=== PATIENT | female | born 1995 | race African-American/Black ===

== ENCOUNTER 2016-08-18 16:46 | Emergency (ER) ==
[2016-08-18] MEDS ORDERED: NUBAIN IM ONE (17:58)
[2016-08-18] MEDS ORDERED: PHENERGAN IM ONE (17:58)
--- NOTE | 2016-08-18 18:00 | PROVIDER DOCUMENTATION ---
HPI-Headache - General Source: patient - History of Present Illness-Headache Headache Location: reports: frontal Quality of Pain: reports: aching Severity: reports: moderate Onset/Duration: reports: other (1mo) Timing: reports: still present Similar Symptoms Previously?: Yes Recently seen or treated by another doctor?: Yes <Nik West - Last Filed: 08/18/16 17:56> <Christine CamaraLazaro - Last Filed: 08/18/16 19:03> - General Chief Complaint: Headache Stated Complaint: HEADACHE,EDEMA Time Seen by Provider: 08/18/16 17:17 Allergies/Adverse Reactions: Patient Allergies Allergy/AdvReac Type Severity Reaction Status Date / Time Penicillins Allergy SWELLING Verified 08/18/16 17:05 Home Medications: Home Medication List Medication Instructions Recorded Confirmed Last Taken Type Butalbital/APAP/Caffeine [Fioricet] 1 each PO TID #30 tablet 08/18/16 Unknown Rx Ferrous Sulfate 325 mg PO TID 08/18/16 08/18/16 08/18/16 History Ibuprofen 800 mg PO TID 08/18/16 08/18/16 08/18/16 History Tramadol HCl 50 mg PO BID 08/18/16 08/18/16 08/18/16 History - History of Present Illness-Headache Nature of Presenting Problem: Reports to er with cc of valdez x 1 month left anterior rotating to right anterior every few days. Reports went to pcp 2 weeks ago for heavy vaginal bleeding diagnosed with anemia given iron pills went back to pcp on continued to have Valdez given tramadol and ibuprofen with no relief came back to er today with same VALDEZ with blurry vision,tinnitus,double vision,weak and poor appetite. ( Nik West) Review of Systems - Adult - REVIEW OF SYSTEMS - ADULT Constitutional: reports: fatique. denies: chills, fever, night sweats Eyes: reports: blurred vision, double vision. denies: dry eyes, eye pain, redness Ears, Nose, Mouth & Throat: reports: tinnitus. denies: ear pain, hearing loss, sinus problem, nose pain, throat pain Cardiovascular: reports: no symptoms reported Respiratory: reports: no symptoms reported Gastrointestinal: reports: no symptoms reported Genitourinary: reports: no symptoms reported Musculoskeletal: reports: no symptoms reported Integumentary: reports: no symptoms reported Neurological: reports: headache/migraines. denies: dizziness/vertigo, numbness , paresthesia, seizure Psychiatric: reports: no symptoms reported Endocrine: reports: no symptoms reported Hematologic/Lymphatic: reports: no symptoms reported Allergic/Immunologic: reports: no symptoms reported All Other Systems: Reviewed and Negative <Nik West - Last Filed: 08/18/16 17:56> Past History - Adult - PAST MEDICAL HISTORY-ADULT Review of Records: reports: Nursing Assessment Review Major Childhood Illnesses: reports: denies history Cardiovascular: reports: denies history Respiratory: reports: denies history Gastrointestinal: reports: denies history Obstetrical/Gynecological: reports: denies history Genitourinary: reports: denies history Musculoskeletal: reports: denies history Neurological: reports: headaches/migraines (frequent headaches to right temporal area) Endocrine/Immune: reports: denies history Other Conditions: reports: denies history - PRIOR SURGERIES/PROCEDURES Surgical/Procedure History: reports: reviewed, not pertinent - PRIOR HOSPITALIZATIONS Prior Hospitalizations: reports: none - IMMUNIZATION STATUS Childhood Immunizations: See Nurse Assessment Flu Vaccine: See Nurse Assessment - FAMILY HISTORY Family History: reviewed, not pertinent - SOCIAL HISTORY Smoking: quit greater than 1 year, other (former) Substance Use: none/never <Nik West - Last Filed: 08/18/16 17:56> Physical Exam- Neurological - Physical Exam-Neuro Initial Vital Signs Reviewed: Yes General Appearance: mild distress Eye Exam: bilateral eye: normal inspection, PERRL, EOMI HENMT: normocephalic/atraumatic, moist mucous membranes Head Injury: no evidence of injury Neck: non-tender, full range of motion, supple Respiratory: chest non-tender, lungs clear, normal breath sounds Cardiovascular: regular rate, rhythm, no edema Abdominal Exam: normal bowel sounds, non tender, soft Peripheral Pulses: radial (R): 2+, radial (L): 2+, dorsalis-pedis (R): 2+, dorsalis-pedis (L): 2+ 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 negative: facial droop Coordination/Gait: normal gait Motor/Sensory: no motor deficit (demonstrates mild weakness in all extremties), no sensory deficit, no pronator drift Neurologic: grossly normal, negative romberg's sign. negative: facial droop, focal weakness, sensory deficit Integumentary: normal color, normal turgor, warm/dry, rash (bilateral hands to dorsal aspect of fingers, occasional pruritis) Psych/Mental Status: normal thought content, normal thought process, depressed affect - Glascow Coma Scale Best Eye Response: (4) open spontaneously Best Verbal Response: (5) oriented Best Motor Response: (6) obeys commands Total Glascow Score: 15 <Christine Camara - Last Filed: 08/18/16 19:03> Progress <Nik West - Last Filed: 08/18/16 17:56> <Christine Camara - Last Filed: 08/18/16 19:03> - PLAN OF CARE/RESULTS Progress/Plan/Lab Results: Vital Signs - 24 hr 08/18/16 17:03 Temperature 99.1 F Pulse Rate 98 H Respiratory 18 Rate Blood Pressure 140/80 O2 Sat by Pulse 100 Oximetry (Nik West) Vital Signs Temp Pulse Resp BP Pulse Ox 08/18/16 17:03 99.1 F 98 H 18 140/80 100 Penicillins Allergy (Verified 08/18/16 17:05) SWELLING Ferrous Sulfate 325 mg PO TID 08/18/16 Ibuprofen 800 mg PO TID 08/18/16 Tramadol HCl 50 mg PO BID 08/18/16 Laboratory 08/18/16 08/18/16 18:24 18:24 WBC 3.86 L RBC 3.47 L Hgb 9.3 L Hct 28.8 L MCV 83.0 MCH 26.8 L MCHC 32.3 L RDW Std Deviation 15.0 H Plt Count 181 MPV 10.2 Immature Gran % (Auto) 0.3 Neut % (Auto) 71.6 Lymph % (Auto) 17.1 L Dolores % (Auto) 10.4 H Eos % (Auto) 0.3 Baso % (Auto) 0.3 Immature Gran # (Auto) 0.01 Neut # (Auto) 2.77 Lymph # (Auto) 0.66 L Dolores # (Auto) 0.40 Eos # (Auto) 0.01 Baso # (Auto) 0.01 Sodium 136 Potassium 3.6 Chloride 103 Carbon Dioxide 21 L Anion Gap 12 BUN 6 L Creatinine 0.5 Estimated GFR/1.73 m2 > 60 BUN/Creatinine Ratio 12 Glucose 91 Calculated Osmolality 269 Calcium 9.5 Total Bilirubin 0.20 AST 16 ALT 10 Alkaline Phosphatase 79 Total Protein 8.5 H Albumin 3.6 Globulin 5.0 Albumin/Globulin Ratio 1.0 Orders Category Date Time Status CBC WITH ELECTRONIC DIFF [HEME] Stat Lab 08/18/16 18:24 Completed CMP [COMPREHENSIVE METABOLIC PANEL] [CHEM] Stat Lab 08/18/16 18:24 Completed Nalbuphine [Nubain] Med 08/18/16 17:58 Discontinued 10 mg IM NOW ONE Promethazine [Phenergan] Med 08/18/16 17:58 Discontinued 25 mg IM NOW ONE (Christine Camara) Departure <Nik West - Last Filed: 08/18/16 17:56> - Departure Time of Disposition Order: 19:01 Certified Medical Emergency: Emergent <Christine Camara - Last Filed: 08/18/16 19:03> - Departure DIAGNOSIS: Headache Qualifiers: Headache type: unspecified Headache chronicity pattern: chronic headache Intractability: not intractable Qualified Code(s): R51 - Headache Anemia Qualifiers: Anemia type: iron deficiency Iron deficiency anemia type: unspecified iron deficiency Qualified Code(s): D50.9 - Iron deficiency anemia, unspecified Disposition: HOME 01 Condition: Good Additional Instructions: follow up with your PCP for further management. ED Follow Up Instructions: You have been treated by a care provider in the Emergency Department. These instructions are being provided to you so you can have an understanding of how to care for yourself upon discharge. Upon discharge from the Emergency Department, you are responsible for making arrangements for follow-up care by a physician of your choice. Take all prescribed medications as directed. Return to the Emergency Department immediately for any new or worsening symptoms. You may call the Physician Referral phone number at [phone] to obtain a list of Physicians who are taking new patients. Prescriptions: Butalbital/APAP/Caffeine [Fioricet] 1 each PO TID #30 tablet Referrals: Susan Puga MD [Primary Care Provider] - Instructions: Migraine Headache, [id number] Attestation - Scribe Verification/Attestation Scribe:: Nik West Acting as Scribe for:: Christine Camara Scribe documention review:: This chart was documented by a scribe and accurately reflects the service the provider performed and the decisions made by the provider. <Nik West - Last Filed: 08/18/16 17:56> - Physician/ CHAD Attestation Patient care was provided by Advanced Practice Provider:: Yes Advanced Practice Provider:: Christine Camara Advanced Practice Provider documentation review:: The Mid-level provider documentation, treatment plan and medical decision making was reviewed by the physician who agrees with all treatment and medical decision making by the MLP. <Christine Camara - Last Filed: 08/18/16 19:03> Physician Attestation
[2016-08-18 18:29] LABS: MANUAL DIFF NEEDED? NO
[2016-08-18 18:31] LABS: BASO% 0.3 % (0.0-0.8); EOS# 0.01 X1000 (0.0-0.7); EOS% 0.3 % (0.0-10.0); HEMATOCRIT 28.8 % (37.0-47.0); HEMOGLOBIN 9.3 g/dL (12.0-16.0); IMM GRAN# 0.01 X1000 (0.0-0.04); IMM GRAN% 0.3 % (0.0-0.5); LYMPH# 0.66 X1000 (1.2-3.4); LYMPH% 17.1 % (20.5-51.1); MCH 26.8 PG (27-31); MCHC 32.3 g/dL (33-37); MONO% 10.4 % (1.7-9.3); MPV 10.2 FL (7.4-10.4); NEUT% 71.6 % (42.2-75.2); PLT 181 X1000 (130-400); RBC 3.47 XMIL (4.2-5.4)
[2016-08-18 18:56] LABS: AGAP 12; ALBUMIN 3.6 g/dL (3.5-5.0); ALKALINE PHOSPHATASE 79 U/L (32-104); BUN 6 mg/dL (8-22); CALCIUM 9.5 mg/dL (8.8-10.2); CHLORIDE 103 mmol/L (98-107); COSMO 269; GOT 16 U/L (10-30); GPT 10 U/L (10-36); POTASSIUM 3.6 mmol/L (3.5-5.1); SODIUM 136 mmol/L (136-145); TCO2 21 mmol/L (25-35); TOTAL PROTEIN 8.5 g/dL (6.3-8.3)
[2016-08-18 19:34] VITALS: BP 111/79
== END 2016-08-18 19:37 | disposition home or self-care (01) ==
LOC: P.ED 16:46
DX: D50.9 Iron deficiency anemia, unspecified (principal); R51 Headache; H53.8 Other visual disturbances; H93.19 Tinnitus, unspecified ear; H53.2 Diplopia; M62.81 Muscle weakness (generalized); R53.83 Other fatigue; R21 Rash and other nonspecific skin eruption; R60.9 Edema, unspecified; Z79.899 Other long term (current) drug therapy
CPT/HCPCS: 36415; 80053; 85025; 96372; J2300; J2550